=== PATIENT | male | born 1965 | race Caucasian/White ===

== ENCOUNTER 2018-10-12 14:19 | Observation (INO) | payer BC ==
[2018-10-12] MEDS: Sodium Chloride 0.9% 10 ML Syringe FLUSH PRN (14:25)
--- NOTE | 2018-10-12 14:34 | EDM.PDOC ---
ED HPI GENERAL MEDICAL PROBLEM - General Stated Complaint: SOB Time Seen by Provider: 10/12/18 14:20 Source of Information: Reports: Patient, Family (came with family) History Limitations: Reports: Respiratory Distress - History of Present Illness INITIAL COMMENTS - FREE TEXT/NARRATIVE: 53 y.o.w.m with a H/O NIDDM, COPD, came to the ED with his family to the ed by wheelchair due to SOB and CP, which started a few days ago and got worse in the past 3-4 days. Pt locates his CP at his left upper anterior chest, worse with deep inspiration. Pt rates his CP 2/10. He noticed swelling of his legs as well , in the past few days. Pt quit smoking and does not use Home O2. Pt is breathing better in sitting/upright position. No N/V/D no Dizziness. No other acute med issues. Vitals on Arrival: BP 138/77 RR 28 Pulse ox 60% on RA. Pulse 122 Temp 36.8 ECG showed Sinus tach, no acute ST/T wave changes. Pt is allergic to ASA. No other acute med issues. Onset Date: 10/02/18 Onset Time: 10:00 Duration: Day(s):, Getting Worse Location: Reports: Chest Quality: Reports: Dull, Same as Previous Episode Severity: Mild (2/10) Improves with: Reports: Medication, Rest Worsens with: Reports: Movement Context: Reports: Other (H/O pneumonia) Associated Symptoms: Reports: Chest Pain, Malaise, Shortness of Breath Treatments NURSING HOME AIDE: Reports: Other (see below) (home meds) chest Pain Score (Numeric/FACES): 8 - Related Data Allergies Allergy/AdvReac Type Severity Reaction Status Date / Time aspirin Allergy Abdominal Verified 10/12/18 14:37 Cramps Home Meds: Home Meds cycloSPORINE [Restasis] 1 drop EYEBOTH BID 04/12/18 [History] Albuterol Sulfate [Proair Hfa] 8.5 gm IH Q4H PRN #1 hfa.aer.ad 04/17/18 [Rx] Nicotine [Habitrol] 21 mg TRDERM DAILY PRN #21 patch 04/17/18 [Rx] SitaGLIPtin [Januvia] 100 mg PO DAILY #30 tablet 04/17/18 [Rx] glipiZIDE [Glucotrol XL] 10 mg PO DAILY #30 tab.er 04/17/18 [Rx] metFORMIN [Glucophage] 1,000 mg PO BIDMEALS 10/12/18 [History] Past Medical History HEENT History: Reports: Impaired Vision Respiratory History: Reports: Pneumonia, Recurrent Gastrointestinal History: Reports: GERD, Other (See Below) Other Gastrointestinal History: states that he has abdominal surgery before unable to remember what kind. Endocrine/Metabolic History: Reports: Diabetes, Type II - Past Surgical History Musculoskeletal Surgical History: Reports: Other (See Below) Other Musculoskeletal Surgeries/Procedures:: left wrist fracture and surgery. Social & Family History - Family History Family Medical History: Noncontributory - Caffeine Use Caffeine Use: Reports: Coffee, Soda ED ROS GENERAL - Review of Systems Review Of Systems: See Below Constitutional: Reports: No Symptoms HEENT: Reports: No Symptoms Respiratory: Reports: Shortness of Breath Cardiovascular: Reports: Chest Pain, Palpitations Endocrine: Reports: High Glucose, Polyuria GI/Abdominal: Reports: No Symptoms : Reports: No Symptoms Musculoskeletal: Reports: No Symptoms Skin: Reports: No Symptoms Neurological: Reports: No Symptoms Psychiatric: Reports: No Symptoms Hematologic/Lymphatic: Reports: No Symptoms Immunologic: Reports: No Symptoms ED EXAM, GENERAL - Physical Exam Exam: See Below Exam Limited By: Respiratory Distress General Appearance: Alert, WD/WN, Moderate Distress Eye Exam: Bilateral Eye: Normal Inspection Ears: Normal External Exam Ear Exam: Bilateral Ear: Auricle Normal Nose: Normal Inspection, Normal Mucosa Throat/Mouth: Normal Inspection, Normal Lips, Normal Voice, No Airway Compromise Head: Atraumatic, Normocephalic Neck: Normal Inspection, Supple, Non-Tender, Full Range of Motion Respiratory/Chest: Respiratory Distress, Crackles, Wheezing, Prolonged Expiration Cardiovascular: JVD, Tachycardia GI/Abdominal: Normal Bowel Sounds, Soft, Non-Tender, No Organomegaly, No Abnormal Bruit, No Mass, Pelvis Stable (Male) Exam: Deferred Rectal (Males) Exam: Deferred Back Exam: Normal Inspection Extremities: Normal Range of Motion, Non-Tender, Pedal Edema Neurological: Alert, Oriented, CN II-XII Intact, Normal Cognition, Other (came by wheelchair) Psychiatric: Normal Affect, Normal Mood Skin Exam: Warm, Dry, Intact, Normal Color, No Rash Lymphatic: No Adenopathy EKG INTERPRETATION EKG Date: 10/12/18 Time: 14:45 Rhythm: NSR Rate (Beats/Min): 119 [place]: RAD-Right [place] Deviation P-Wave: Present QRS: Normal ST-T: Normal QT: Normal Comparison: NA - No Prior EKG (Low voltage ECG) Course - Vital Signs Text/Narrative:: 53 y.o.w.m with a H/O NIDDM, COPD, came to the ED with his family to the ed by wheelchair due to SOB and CP, which started a few days ago and got worse in the past 3-4 days. Pt locates his CP at his left upper anterior chest, worse with deep inspiration. Pt rates his CP 2/10. He noticed swelling of his legs as well , in the past few days. Pt quit smoking and does not use Home O2. Pt is breathing better in sitting/upright position. No N/V/D no Dizziness. No other acute med issues. Vitals on Arrival: BP 138/77 RR 28 Pulse ox 60% on RA. Pulse 122 Temp 36.8 ECG showed Sinus tach, no acute ST/T wave changes. Pt is allergic to ASA. No other acute med issues. PE: WNWD W M in resp distress and chest pain. Imaging: CHF with small right pleural effusion, patchy opacity lower lungs. DDX : Atelectasis vs Pneumonia Labs: WBC 6.8 HGB 18.6 HCT 56.1 Plts:136K INR: 1.76 (pt is not on Coumadin) D Dimer 0.57 Na 133 K 4.4 Carbon Dioxide 34, Cr 1.0 BUN 11, GFR > 60 Glc 326 Ca 8.3 BNP 161. Mg 1.8 Lactic acid 1.6 Troponin 0.034. ABG on a NRBM 15 liters: pH 7.37 pCO2 67 pO2 107 HCO3 36 O2 sat 98% BE 6.8 Impression: CHF with hypoxemia, Asthma, Atelectasis right lower lung, NIDDM, Hypocalcemia, Elevated INR, Hyponatremia. COPD exacerbation. Compensated Resp acidosis Tx: (ASA not given because the pt is allergic to it), Duo neb, Solu medrol, O2 by NC and NRBM, NTG patch. Reexam: Pt's symptoms improved, O2 sat still low on RA 3.01 pm Consultation: Dr Cantu, Hospitalist: Accepted the pt for admission, tele OBS Plan: Admit to med surge/tele Last Recorded V/S: Last Vital Signs Temp 37.1 C 10/12/18 18:00 Pulse 110 H 10/12/18 15:40 Resp 24 H 10/12/18 18:00 BP 141/101 H 10/12/18 18:00 Pulse Ox 97 10/12/18 18:00 - Orders/Labs/Meds Labs: Laboratory Tests 10/12/18 10/12/18 10/12/18 Range/Units 14:35 14:35 14:35 WBC 6.8 (4.5-12.0) X10-3/uL RBC 6.21 H (4.30-5.75) x10(6)uL Hgb 18.3 H (13.5-17.8) g/dL Hct 56.1 H (30.0-51.3) % MCV 90.3 (80-96) fL MCH 29.5 (27.7-33.6) pg MCHC 32.6 (32.2-35.4) g/dL RDW 14.2 (11.5-15.5) % Plt Count 136 (125-369) X10(3)uL MPV 7.5 (7.4-10.4) fL Neut % (Auto) 74.8 (46-82) % Lymph % (Auto) 13.8 (13-37) % Sierra % (Auto) 9.0 (4-12) % Eos % (Auto) 2 (1.0-5.0) % Baso % (Auto) 1 (0-2) % Neut # (Auto) 5.2 (1.6-8.3) # Lymph # (Auto) 0.9 (0.6-5.0) # Sierra # (Auto) 0.6 (0.0-1.3) # Eos # (Auto) 0.1 (0.0-0.8) # Baso # (Auto) 0.0 (0.0-0.2) # PT (8.7-11.1) INR (0.89-1.13) D-Dimer, Quantitative 0.57 (0.0-0.59) mg/LFEU Sodium 133 L (135-145) mmol/L Potassium 4.4 (3.5-5.3) mmol/L Chloride 94 L (100-110) mmol/L Carbon Dioxide 34 H (21-32) mmol/L BUN 11 (7-18) mg/dL Creatinine 1.0 (0.70-1.30) mg/dL Est Cr Clr Drug Dosing TNP Estimated GFR (MDRD) > 60 (>60) BUN/Creatinine Ratio 11.0 (9-20) Glucose 325 H D (80-116) mg/dL Lactic Acid (0.4-2.2) mmol/L Calcium 8.3 L (8.6-10.2) mg/dL Magnesium (1.8-2.5) mg/dL Troponin I (<0.017-0.056) ng/mL NT-Pro-B Natriuret Pep (<=125) pg/mL 10/12/18 10/12/18 10/12/18 Range/Units 14:35 14:35 14:35 WBC (4.5-12.0) X10-3/uL RBC (4.30-5.75) x10(6)uL Hgb (13.5-17.8) g/dL Hct (30.0-51.3) % MCV (80-96) fL MCH (27.7-33.6) pg MCHC (32.2-35.4) g/dL RDW (11.5-15.5) % Plt Count (125-369) X10(3)uL MPV (7.4-10.4) fL Neut % (Auto) (46-82) % Lymph % (Auto) (13-37) % Sierra % (Auto) (4-12) % Eos % (Auto) (1.0-5.0) % Baso % (Auto) (0-2) % Neut # (Auto) (1.6-8.3) # Lymph # (Auto) (0.6-5.0) # Sierra # (Auto) (0.0-1.3) # Eos # (Auto) (0.0-0.8) # Baso # (Auto) (0.0-0.2) # PT 17.0 H (8.7-11.1) INR 1.76 H (0.89-1.13) D-Dimer, Quantitative (0.0-0.59) mg/LFEU Sodium (135-145) mmol/L Potassium (3.5-5.3) mmol/L Chloride (100-110) mmol/L Carbon Dioxide (21-32) mmol/L BUN (7-18) mg/dL Creatinine (0.70-1.30) mg/dL Est Cr Clr Drug Dosing Estimated GFR (MDRD) (>60) BUN/Creatinine Ratio (9-20) Glucose (80-116) mg/dL Lactic Acid 1.6 (0.4-2.2) mmol/L Calcium (8.6-10.2) mg/dL Magnesium (1.8-2.5) mg/dL Troponin I 0.034 (<0.017-0.056) ng/mL NT-Pro-B Natriuret Pep (<=125) pg/mL 10/12/18 10/12/18 Range/Units 14:35 14:35 WBC (4.5-12.0) X10-3/uL RBC (4.30-5.75) x10(6)uL Hgb (13.5-17.8) g/dL Hct (30.0-51.3) % MCV (80-96) fL MCH (27.7-33.6) pg MCHC (32.2-35.4) g/dL RDW (11.5-15.5) % Plt Count (125-369) X10(3)uL MPV (7.4-10.4) fL Neut % (Auto) (46-82) % Lymph % (Auto) (13-37) % Sierra % (Auto) (4-12) % Eos % (Auto) (1.0-5.0) % Baso % (Auto) (0-2) % Neut # (Auto) (1.6-8.3) # Lymph # (Auto) (0.6-5.0) # Sierra # (Auto) (0.0-1.3) # Eos # (Auto) (0.0-0.8) # Baso # (Auto) (0.0-0.2) # PT (8.7-11.1) INR (0.89-1.13) D-Dimer, Quantitative (0.0-0.59) mg/LFEU Sodium (135-145) mmol/L Potassium (3.5-5.3) mmol/L Chloride (100-110) mmol/L Carbon Dioxide (21-32) mmol/L BUN (7-18) mg/dL Creatinine (0.70-1.30) mg/dL Est Cr Clr Drug Dosing Estimated GFR (MDRD) (>60) BUN/Creatinine Ratio (9-20) Glucose (80-116) mg/dL Lactic Acid (0.4-2.2) mmol/L Calcium (8.6-10.2) mg/dL Magnesium 1.8 (1.8-2.5) mg/dL Troponin I (<0.017-0.056) ng/mL NT-Pro-B Natriuret Pep 161 H (<=125) pg/mL Meds: Medications Discontinued Medications Generic Name Dose Route Start Last Admin Trade Name Freq PRN Reason Stop Dose Admin Albuterol 2.5 mg 10/12/18 15:16 Proventil Neb Soln NEB Q2H PRN Shortness Of Breath/wheezing Albuterol/Ipratropium 3 ml 10/12/18 14:27 10/12/18 14:35 Duoneb 3.0-0.5 Mg/3 Ml NEB 10/12/18 14:28 3 ml ONETIME ONE Administration Calcium Carbonate 1 tab 10/12/18 14:58 Calcium Carbonate/Vitamin D 1250 Mg-200 Unit PO 10/12/18 14:59 ONETIME ONE Docusate Sodium 100 mg 10/12/18 15:16 Colace PO BID PRN Constipation Enoxaparin Sodium 40 mg 10/12/18 15:30 10/12/18 18:22 Lovenox SUBCUT 40 mg Q24H HECTOR Administration Furosemide 20 mg 10/12/18 14:54 10/12/18 15:08 Lasix IVPUSH 10/12/18 14:55 Not Given ONETIME ONE Furosemide Confirm 10/12/18 14:59 10/12/18 15:08 Lasix Administered 10/12/18 15:00 Not Given Dose 40 mg .ROUTE .STK-MED ONE Furosemide 20 mg 10/12/18 14:54 10/12/18 15:00 Lasix IVPUSH 10/12/18 14:55 20 mg NOW ONE Administration Methylprednisolone Sodium Succinate 125 mg 10/12/18 14:28 10/12/18 14:42 Solu-Medrol IVPUSH 10/12/18 14:29 125 mg ONETIME ONE Administration Nitroglycerin 1 gm 10/12/18 14:54 10/12/18 15:05 Nitro-Bid 2% TOP 10/12/18 14:55 1 gm ONETIME ONE Administration Sodium Chloride 10 ml 10/12/18 14:53 10/12/18 14:25 Saline Flush FLUSH 10 ml ASDIRECTED PRN Administration Keep Vein Open Departure - Departure Time of Disposition: 18:00 Disposition: Admitted As Inpatient 66 Reason for Transfer *Q: Primary PCI Indicated (hypoxemia) Condition: Fair Clinical Impression: Asthma
[2018-10-12] MEDS: Albuterol/Ipratropium 3.0-0.5 MG/3 ML Neb Soln NEB ONE (14:35)
[2018-10-12] MEDS: methylPREDNISolone Sodium Succinate 125 MG/2 ML SDV IVPUSH ONE (14:42)
[2018-10-12] MEDS ORDERED: Calcium Carbonate/Vitamin D3 1250 MG-200 Unit Tab PO ONE (14:58)
[2018-10-12] MEDS: Furosemide 40 MG/4 ML VIAL IVPUSH ONE (15:00)
[2018-10-12] MEDS: Nitroglycerin 2% Oint 1 GM UD Packet TOP ONE (15:05)
[2018-10-12] MEDS: Furosemide 20 MG/2 ML VIAL IVPUSH ONE (15:08)
[2018-10-12] MEDS: Furosemide 40 MG/4 ML VIAL ONE (15:08)
[2018-10-12] MEDS ORDERED: Albuterol 0.083% 2.5 MG/3 ML Neb Soln NEB PRN (15:16)
[2018-10-12] MEDS ORDERED: Docusate Sodium 100 MG Cap PO PRN (15:16)
[2018-10-12] MEDS: Enoxaparin 40 MG/0.4 ML Syringe SUBCUT SCH (18:22)
--- NOTE | 2018-10-13 10:18 | HP ---
ADMISSION DATE: 10/12/2018 REASON FOR VISIT: Acute severe respiratory distress. HISTORY OF PRESENT ILLNESS: Kit Holland is a 53-year-old male, [facility] resident, was admitted through [facility]. Presented with 2-day history of progressive respiratory decline, shortness of breath, dyspnea, difficulty to sleep, interrupted sleep, and complicated weight gain and edema. He had a similar hospitalization in March 2018, pneumonia, coughs. He has been diabetic for couple of years duration. CURRENT MEDICATIONS: 1. Januvia 100 mg one p.o. daily, NIDDM. 2. Metformin 1000 mg one p.o. b.i.d., NIDDM. 3. Glipizide/Glucotrol XL 10 mg one p.o. daily, NIDDM. 4. Nicoderm patch, reducing cigarettes. 5. Eye drops. 6. Multivitamin. 7. Naproxen. 8. ProAir. 9. Nicotine patch. ALLERGIES: Allergic to aspirin, stomach upset. PAST MEDICAL HISTORY: Significant for previous gastric bypass surgery and previous right wrist fracture for the scaphoid fracture. Chronic illnesses include obesity; probable sleep apnea, obstructive in nature; hyperlipidemia; hypertension. SOCIAL HISTORY: Works for [employer]. . a few years ago, complication of diabetes. Two children, both grown. Two pack per day smoker, reduced intake last several months. Nil alcohol consumption. FAMILY HISTORY: Negative for early heart disease, diabetes mellitus, or inheritable cancer. PHYSICAL EXAMINATION: VITAL SIGNS: Stable and documented. O2 of 88%, 15 L rebreather. Pulse tachycardic at 120. Blood pressure 120/70. Weight 253. GENERAL: Obvious profound respiratory distress. Tachypneic, tachycardic, difficulty maintaining conversation. HEENT: Funduscopic benign. Bright TMs. Clear nasal discharge. Mouth and oropharynx clear. Poor dentition. Tongue midline. Good gag reflex. NECK: Benign. No JVD. CHEST: Diffuse wheezing, coarse rhonchi. HEART: Distant heart sounds without ectopy, without murmur, at 120. ABDOMEN: Rotund. Surgical scars well healed. GENITOURINARY: Normal male genitalia. RECTAL: Deferred. EXTREMITIES: Well perfused. LABORATORY STUDIES: Hemoglobin 18.3, hematocrit 56.1, 5800 white count. Troponin negative. Slightly elevated BNP. Blood gases of significance; 7.37, pCO2 of 64, CO2 of 106. Chest x-ray, diffuse alveolar infiltrate. IMPRESSION: Acute complicated pulmonary edema, likely origin obstructive sleep apnea, obesity, and Pickwickian syndrome. PLAN: The patient is urgently sick and will need hospitalization. [facility], Dr. Mustafa at [place], who agreed to accept the patient in consultation and transfer. /[id number] FARAZ/SAMANTHA
== END 2018-10-12 18:30 ==
LOC: FB.ED 14:19 → FB.MS 15:17
PROVIDERS: ADMIT Family Medicine; ATTEND Family Medicine
DX: J81.0 Acute pulmonary edema (principal); E11.9 Type 2 diabetes mellitus without complications; E66.9 Obesity, unspecified; Z79.51 Long term (current) use of inhaled steroids; Z79.84 Long term (current) use of oral hypoglycemic drugs; Z79.1 Long term (current) use of non-steroidal anti-inflammatories (NSAID); Z79.899 Other long term (current) drug therapy; Z88.6 Allergy status to analgesic agent; Z86.79 Personal history of other diseases of the circulatory system
CPT/HCPCS: 36415; 36600; 71045; 80048; 82803; 82962; 83605; 83735; 83880; 84484; 85025; 85379; 85610; 93005; 94640; 96372; 96374; 96375; 99285-25; A9270-GY; G0378; J1650; J1940; J2930; J7620-GY

== ENCOUNTER 2021-07-27 07:23 | Day surgery (SDC) | payer BC ==
[2021-07-27] MEDS ORDERED: Propofol 200 MG/20 ML SDV IV ONE (07:24)
[2021-07-27] MEDS ORDERED: Ketamine 500 mg/10 ML MDV IV ONE (07:24)
[2021-07-27] MEDS ORDERED: Sodium Chloride 0.9% 10 ML Syringe FLUSH PRN (07:30)
[2021-07-27] MEDS: Lactated Ringers 1,000 ML IV SCH (08:50)
[2021-07-27 12:02] VITALS: BP 125/87; PULSE 100
== END 2021-07-27 10:20 | disposition home or self-care (01) ==
LOC: FB.SDS 07:23
PROVIDERS: ATTEND Surgery
DX: Z12.11 Encounter for screening for malignant neoplasm of colon (principal); K58.9 Irritable bowel syndrome, unspecified; E78.00 Pure hypercholesterolemia, unspecified; I10 Essential (primary) hypertension; J44.9 Chronic obstructive pulmonary disease, unspecified; Z79.82 Long term (current) use of aspirin; E66.9 Obesity, unspecified; G47.33 Obstructive sleep apnea (adult) (pediatric); E11.65 Type 2 diabetes mellitus with hyperglycemia; Z79.899 Other long term (current) drug therapy; Z88.8 Allergy status to other drugs, medicaments and biological substances; Z79.4 Long term (current) use of insulin; Z79.84 Long term (current) use of oral hypoglycemic drugs; Z98.890 Other specified postprocedural states; Z87.891 Personal history of nicotine dependence; Z68.41 Body mass index [BMI] 40.0-44.9, adult
CPT/HCPCS: 00812-QZ; 82947; J2704; J3490; J7120